=== PATIENT | male | born 1985 | race Caucasian/White ===

== ENCOUNTER 2017-07-24 09:06 | Day surgery (SDC) | payer OTHER ==
--- NOTE | 2017-07-24 09:43 | PDOC ---
History of Present Illness - History of Present Illness Initial Comments: 07/24/17 09:53 The patient is a 32 year old male, with a significant past medical history of left inguinal hernia, who presents to the emergency department for scheduled left inguinal hernia repair with Dr. Issac Shelton with increasing pain to his left lower abdomen x 1 month. He reports being NPO since midnight. He reports his LBM was normal yesterday. He denies chest pain, shortness of breath, headache and dizziness. He denies fever, chills, nausea, vomit, diarrhea and constipation. He denies dysuria, frequency, urgency and hematuria. Allergies: NKDA Past surgical history: none reported Social history: nonsmoker, no EtOH use <Mini Lewis - Last Filed: 07/24/17 09:53> <Akash Alexander - Last Filed: 07/24/17 15:01> - General Chief Complaint: Pain, Acute Stated Complaint: PAIN (PCP SENT) Time Seen by Provider: 07/24/17 09:30 Past History <Mini Lewis - Last Filed: 07/24/17 09:53> - Past Medical History CVA: No COPD: No DVT: No Dementia: No - Immunization History Immunization Up to Date: Yes - Suicide/Smoking/Psychosocial Hx Smoking History: Former smoker Have you smoked in the past 12 months: No If you are a former smoker, when did you quit?: 10yrs Information on smoking cessation initiated: No Hx Alcohol Use: No Drug/Substance Use Hx: No Substance Use Type: None <Akash Alexander - Last Filed: 07/24/17 15:01> - Past Medical History Allergies/Adverse Reactions: Allergies Allergy/AdvReac Type Severity Reaction Status Date / Time No Known Allergies Allergy Verified 07/24/17 09:11 Home Medications: Ambulatory Orders Docusate Sodium [Colace -] 100 mg PO TID #90 capsule 07/24/17 Oxycodone HCl/Acetaminophen [Percocet 5-325 mg Tablet] 1 - 2 tab PO Q6H #28 tab MDD 4 07/24/17 Review of Systems - Review of Systems Constitutional: No: Chills, Fever Respiratory: No: Cough, Shortness of Breath ABD/GI: Yes: See HPI. No: Constipated, Diarrhea, Vomiting : No: Dysuria, Hematuria All Other Systems: Reviewed and Negative <Akash Alexander - Last Filed: 07/24/17 15:01> *Physical Exam - Vital Signs Last Vital Signs Temp Pulse Resp BP Pulse Ox 98.5 F 95 H 15 134/86 100 07/24/17 09:12 07/24/17 09:12 07/24/17 09:12 07/24/17 09:12 07/24/17 09:12 - Physical Exam Comments: 07/24/17 09:54 GENERAL: The patient is awake, alert, and fully oriented, in no acute distress. HEAD: Normal with no signs of trauma. EYES: Pupils equal, round and reactive to light, extraocular movements intact, sclera anicteric, conjunctiva clear with no pallor. ENT: Ears normal, nares patent, oropharynx clear without exudates. Moist mucous membranes. NECK: Normal range of motion, supple without lymphadenopathy, JVD, or masses. LUNGS: Breath sounds equal, clear to auscultation bilaterally. No wheeze/ crackles. HEART: Regular rate and rhythm, normal S1 and S2 without murmur or rub. ABDOMEN: No palpable incarcerated hernia. Soft/nontender/nondistended. BS wnl. No guarding or rebound. No palpable masses or lymphadenopathy. No hepatosplenomegaly. EXTREMITIES: Normal range of motion, no edema. No clubbing or cyanosis. No cords, erythema, or tenderness. NEUROLOGICAL: Cranial nerves II through XII grossly intact. Normal speech, normal gait. PSYCH: Normal mood, normal affect. SKIN: Warm, Dry, normal turgor, no rashes or lesions noted. <Mini Lewis - Last Filed: 07/24/17 09:53> - Vital Signs Last Vital Signs Temp Pulse Resp BP Pulse Ox 98.5 F 95 H 15 134/86 100 07/24/17 09:12 07/24/17 09:12 07/24/17 09:12 07/24/17 09:12 07/24/17 09:12 <Akash Alexander - Last Filed: 07/24/17 15:01> Heart Score/ECG Review #1 ECG reviewed & interpreted by me at: 12:28 General ECG Interpretation: Sinus Rhythm, Normal Rate (78), Normal Intervals ( qtc 426), No acute ischemic changes <Akash Alexander - Last Filed: 07/24/17 15:01> ED Treatment Course - LABORATORY CBC & Chemistry Diagram: 07/24/17 09:40 07/24/17 09:40 <Akash Alexander - Last Filed: 07/24/17 15:01> Medical Decision Making - Medical Decision Making 07/24/17 09:50 A portion of this note was documented by scribe services under my direction. I have reviewed the details of the note, within reason, and agree with the documentation with the following case summary and management plan written by me. 32-year-old male with worsening pain and discomfort from the inguinal hernia, plan for operative repair with Dr. Shelton. No obstructive symptoms of vomiting or constipation, no fevers or chills. abd soft, L inguinal hernia without incarceration. nt/nd, bs nl no LAD 32y/o M with worsening symptoms of L inguinal hernia. labs, iv accepted for OR by Dr. Shelton <Akash Alexander - Last Filed: 07/24/17 15:01> *DC/Admit/Observation/Transfer - Attestations Scribe Attestion: 07/24/17 09:54 Documentation prepared by Mini Lewis, acting as medical delivery technician for Akash Alexander MD, <Mini Lewis - Last Filed: 07/24/17 09:53> - Discharge Dispostion Admit: Yes <Akash Alexander - Last Filed: 07/24/17 15:01> Diagnosis at time of Disposition: Left inguinal hernia
[2017-07-24 10:19] LABS: BASOPHIL 0.7 % (0-2.0); EOSINOPHIL 2.3 % (0-4.5); MCH 24.4 pg (25.7-33.7); MCHC 32.1 g/dl (32.0-35.9); MEAN PLT VOLUME 9.4 fl (7.5-11.1); NEUTROPHILS 51.2 % (42.8-82.8); PLATELET COUNT 189 K/MM3 (134-434); RDW 21.1 % (11.9-15.9); WHITE BLOOD COUNT 7.4 K/mm3 (4.0-10.0)
[2017-07-24 10:27] LABS: INR 1.03 (0.82-1.09); PROTHROMBIN TIME (PATIENT) 11.6 SEC (9.98-11.88)
[2017-07-24 10:30] LABS: ACTIVATED PTT 31.1 SECONDS (26.9-34.4)
[2017-07-24 10:36] LABS: ALBUMIN 4.8 g/dl (3.4-5.0); ANION GAP 9 (8-16); BILIRUBIN,TOTAL 0.6 mg/dL (0.2-1.0); CALCIUM 9.3 mg/dL (8.5-10.1); CO2 25 mmol/L (21-32); CREATININE 1.1 mg/dL (0.7-1.3); GLUCOSE,RANDOM 84 mg/dL (74-106); SGOT/AST 25 U/L (15-37); TOT PROT 8.7 g/dl (6.4-8.2)
[2017-07-24 10:39] LABS: ALK PHOS 73 U/L (45-117); SGPT/ALT 54 U/L (12-78)
--- NOTE | 2017-07-24 11:16 | CONSULT ---
Consult Consult Specialty:: Surgery Reason for Consultation:: Abdominal pain - History of Present Illness History of Present Illness: 32 male presents to the ER for abdominal pain Pain is near previously noted inguinal hernia More tender on the right No fevers - History Source History Provided By: Patient Limitations to Obtaining History: No Limitations - Alcohol/Substance Use Hx Alcohol Use: No - Smoking History Smoking history: Former smoker Have you smoked in the past 12 months: No If you are a former smoker, when did you quit?: 10yrs Home Medications - Allergies Allergies/Adverse Reactions: Allergies Allergy/AdvReac Type Severity Reaction Status Date / Time No Known Allergies Allergy Verified 07/24/17 09:11 - Home Medications Home Medications: Ambulatory Orders Docusate Sodium [Colace -] 100 mg PO TID #90 capsule 07/24/17 Oxycodone HCl/Acetaminophen [Percocet 5-325 mg Tablet] 1 - 2 tab PO Q6H #28 tab MDD 4 07/24/17 Family Disease History - Family Disease History Family History: Unremarkable Review of Systems - Review of Systems Constitutional: denies: Chills, Fever HENT: reports: No Symptoms Neck: reports: No Symptoms Cardiovascular: denies: Chest Pain Respiratory: denies: Cough Gastrointestinal: reports: Abdominal Pain Genitourinary: reports: No Symptoms Neurological: denies: Change in LOC Pain Intensity: 3 Physical Exam Vital Signs: Vital Signs Temperature 98.5 F 07/24/17 09:12 Pulse Rate 95 H 07/24/17 09:12 Respiratory Rate 15 07/24/17 09:12 Blood Pressure 134/86 07/24/17 09:12 O2 Sat by Pulse Oximetry (%) 100 07/24/17 09:56 Constitutional: Yes: Calm HENT: Yes: WNL Neck: Yes: Supple Cardiovascular: Yes: Regular Rate and Rhythm Respiratory: Yes: CTA Bilaterally Gastrointestinal: Yes: Soft, Tenderness (Near right inguinal hernia Some tenderness near a left inguinal hernia as well) Neurological: Yes: Alert, Oriented Labs: CBC, BMP 07/24/17 09:40 Problem List - Problems (1) Inguinal hernia, bilateral Code(s): K40.20 - BI INGUINAL HERNIA, W/O OBST OR GANGRENE, NOT SPCF RECUR Qualifiers: Obstruction and gangrene presence: without obstruction or gangrene Assessment/Plan Bilateral inguinal hernias causing pain Will repair with mesh
--- NOTE | 2017-07-24 13:19 | EKG ---
Test Reason : Blood Pressure : / mmHG Vent. Rate : 078 BPM Atrial Rate : 078 BPM P-R Int : 152 ms QRS Dur : 088 ms QT Int : 374 ms P-R-T Axes : 060 085 071 degrees QTc Int : 426 ms NORMAL SINUS RHYTHM NORMAL ECG NO PREVIOUS ECGS AVAILABLE REPEAT EKG IF CLINICALLY INDICATED Confirmed by STCAY BRITO MD ([id number]) on 07/24/2017 1:18:49 PM Referred By: Confirmed By:STACY BRITO MD
[2017-07-24 15:01] VITALS: BMI 30.1
[2017-07-24] MEDS ORDERED: MIDAZOLAM HCL 2 MG/2 ML SINGLE DOSE VIAL ONE (17:12)
[2017-07-24] MEDS ORDERED: ROCURONIUM BROMIDE 50 MG/5 ML VIAL ONE ×2 (17:16→18:42)
[2017-07-24] MEDS ORDERED: DESFLURANE GAS 240 ML BOTTLE IH ONE (17:26)
[2017-07-24] MEDS ORDERED: PROMETHAZINE HCL 25 MG/1 ML VIAL IVPUSH PRN (17:35)
[2017-07-24] MEDS ORDERED: ONDANSETRON 4 MG/2 ML VIAL IVPUSH PRN ×2 (17:35→21:08)
[2017-07-24] MEDS ORDERED: LACTATED RINGERS SOLUTION 1,000 ML IV SCH (17:45)
[2017-07-24] MEDS ORDERED: DEXAMETHASONE SOD PHOSPHATE 4 MG/1 ML VIAL ONE (18:06)
[2017-07-24] MEDS ORDERED: SODIUM CHLORIDE 0.9% P/F 10 ML VIAL IJ ONE (18:06)
[2017-07-24] MEDS ORDERED: ceFAZolin SODIUM 1 GM VIAL ONE (18:06)
[2017-07-24] MEDS ORDERED: ceFAZolin SODIUM 1 GM VIAL IVPB ONE (18:10)
[2017-07-24] MEDS ORDERED: KETOROLAC TROMETHAMINE 30 MG/1 ML VIAL ONE (19:31)
[2017-07-24] MEDS ORDERED: GLYCOPYRROLATE 0.2 MG/1 ML VIAL ONE (20:28)
[2017-07-24] MEDS ORDERED: NEOSTIGMINE METHYLSULFATE 0.5 MG/ML - 10 ML MDV ONE (20:29)
[2017-07-24] MEDS ORDERED: ACETAMINOPHEN 325 MG TABLET (FP) PO PRN (21:08)
[2017-07-24] MEDS ORDERED: HYDROmorphone HCL CARPU-JECT 1 MG/1 ML DISP.SYRIN IVPB PRN (21:08)
--- NOTE | 2017-07-24 21:11 | OP ---
Operative Note - Note: Operative Date: 07/24/17 Pre-Operative Diagnosis: Bilateral inguinal hernias with pain Operation: Robotic bilateral inguinal hernia repair with mesh. Laparoscopic umbilical hernia repair Findings: Bilateral indirect inguinal hernias Post-Operative Diagnosis: Other (Bilateral indirect inguinal hernias, umbilical hernia) Surgeon: Issac Shelton [employer] Guide: Nunu Randolph Anesthesia: General Specimens Removed: None Estimated Blood Loss (mls): 10 Drains & Tubes with Location: Large 3D max mesh bilaterally Operative Report Dictated: Yes
--- NOTE | 2017-07-24 21:12 | SURG ---
Surgery Animal Behaviourist Note Animal Behaviourist: Nunu Randolph PA-C Date of Service: 07/24/17 Diagnosis: Bilateral inguinal hernias with pain Procedure: Robotic bilateral inguinal hernia repair with mesh. Laparoscopic umbilical hernia repair I was present for the entirety of the operative procedure. For further detail, please refer to operative report. Visit type - Case Type Case Type: ED Admission - Emergency Emergency Visit: Yes Care time: The patient presented to the Emergency Department on the above date and was hospitalized for further evaluation of their emergent condition. - New patient This patient is new to me today: Yes Date on this admission: 07/24/17
[2017-07-24] MEDS: D5-1/2NS+20 MEQ KCL - 20 MEQ/1,000 ML INFUS.BAG IV SCH (23:03)
[2017-07-25] MEDS: oxyCODONE HCL 5 MG TABLET PO PRN ×2 (07:47→12:41)
--- NOTE | 2017-07-25 08:43 | SPEC ---
DATE OF OPERATION: 07/24/2017 SURGEON: Issac Shelton M.D. REAL ESTATE TEACHER: SKY Arvizu PREOPERATIVE DIAGNOSIS: Bilateral inguinal hernias with pain. POSTOPERATIVE DIAGNOSIS: Bilateral indirect inguinal hernias and umbilical hernia. PROCEDURE PERFORMED: Robotic repair of bilateral indirect inguinal hernias with 3DMax mesh, and laparoscopic umbilical hernia repair. ESTIMATED BLOOD LOSS: 10 mL. DRAINS: None. ANESTHESIA: GET. REASON FOR PROCEDURE: This is a 32-year-old gentleman who presented to the ER with pain at his bilateral inguinal regions, right greater than left. He was noted to have bilateral inguinal hernias. Because of this, he was consented for robotic, possible open bilateral inguinal hernia repairs with mesh. RISKS AND BENEFITS: The risks and benefits of a robotic, possible open bilateral inguinal hernia repair with possible mesh were explained. These included bleeding, infection, recurrence of hernia, NC, DVT, PE, new hernia, injury to surrounding structures including the colon, bowel, bladder, spleen, other intra-abdominal organs, vas deferens, testcular vessels with possible atrophy and necrosis, vessel injury, nerve injury, mesh infection and as some of the possible complications. The patient understood and signed informed consent. DESCRIPTION OF PROCEDURE: ROBOTIC RIGHT INGUINAL HERNIA REPAIR WITH MESH: The patient was placed supine on the operating room table. Patient underwent general endotracheal intubation. A Mcknight catheter was inserted by the nursing staff. The arms were tucked at the side, and he was placed on a beanbag device. The abdomen was prepped and draped in the usual sterile fashion. A time-out was performed. A periumbilical incision was made , and an umbilical hernia was noted. Entrance into the abdominal cavity was obtained using a 12-mm robotic trocar under direct visualization with a laparoscope. Pneumoperitoneum was established. Subsequently, two additional 8-mm trocars were placed, one approximately 6-7 cm to the left of the umbilicus and one 6-7 cm to the right of the umbilicus. The patient was placed in steep Trendelenburg. The robot was brought over the field and docked. The right inguinal hernia was first approached. Dissection was performed at the console. The peritoneum was opened using robotic EndoShears. The preperitoneal space over the right inguinal region was dissected. The epigastric vessels were identified. These were dissected towards the anterior abdominal wall. Dissection in the preperitoneal space was continued from the medial umbilical ligament towards the anterior-superior iliac spine. Medially, dissection was performed until Kurtis's ligament and the pubis were identified. Lateral to this, the spermatic cord structures including the vas deferens were identified. The contents of the hernia sac were identified and dissected down to the retroperitoneum. At this point, hemostasis was identified. Again, all of the hernia contents were noted to be completely dissected and noted to have no retraction back to its original position. A mesh was then chosen, irrigated, and inserted into the abdominal cavity to cover the entire myopectineal orifice. This mesh was secured medially at the pubis and superolaterally to the abdominal wall with sutures. The mesh was noted to be in good position. The hernia was again noted to be fully reduced and without any tension. At this point, the peritoneal flap was closed using a 2-0 V-Loc suture. Again, hemostasis was identified. All needles were removed from the field, and the count was confirmed to be correct. The same dissection and mesh placement was performed on the left side. The preperitoneal space over the left inguinal region was dissected. The epigastric vessels were identified and dissected toward the anterior abdominal wall. Dissection in the preperitoneal space was continued from the medial umbilical ligament towards the anterior-superior iliac spine. Medially, dissection was performed until Kurtis's ligament and the pubis were identified. Lateral to this, the spermatic cord structures, including the vas deferens, were identified. The contents of the hernia sac were identified and dissected down to the retroperitoneum. At this point, hemostasis was identified. Again, all of the hernia content was noted to be completely dissected and noted to have no retraction back to its original position. A mesh was then chosen, irrigated and inserted into the abdominal cavity to cover the entire myopectineal orifice. The mesh was secured medially at the pubis and superolaterally to the abdominal wall with sutures. The mesh was noted to be in good position. The hernia was again noted to be fully reduced and without any tension. At this point, the peritoneal flap was closed using a 2-0 V-Loc suture. Again, hemostasis was identified. All needles were removed from the field and the count was confirmed to be correct. The robotic instruments were removed. The robot was undocked and removed from the operative field. The patient was placed supine. UMBILICAL HERNIA REPAIR: At the beginning of the procedure it was also noted that the patient had an umbilical hernia. This was used to place the initial trocar. At the end, after the pneumoperitoneum was desufflated and all trocars were removed , the umbilical hernia was repaired laparoscopically with 0 Vicryl suture with a Darren-Krunal device. Pneumopoeritoneum was then desufflated and all trocars removed. Marcaine was injected in all incisions. All skin incisions were closed using 4- 0 Biosyn. Sterile dressings were applied. The patient tolerated the procedure well and was transferred to the recovery room in stable condition. Jez [id number] MTDD
[2017-07-25] MEDS: D5-1/2NS+20 MEQ KCL - 20 MEQ/1,000 ML INFUS.BAG IV SCH (12:46)
[2017-07-25 18:15] VITALS: BP 108/71; PULSE 80; TEMP 98.9
== END 2017-07-25 18:34 | disposition home or self-care (01) ==
LOC: JER 09:06 → JASUSAT 09:52 → J6S 22:45 → JASUSAT 07-25 18:34
PROVIDERS: ATTEND Surgery
PROC: 8E0W4CZ Robotic Assisted Procedure of Trunk Region, Percutaneous Endoscopic Approach (ICD-10-PCS; 2017-07-24)
PROC: 0WQF4ZZ Repair Abdominal Wall, Percutaneous Endoscopic Approach (ICD-10-PCS; 2017-07-24)
PROC: 8E0W4CZ Robotic Assisted Procedure of Trunk Region, Percutaneous Endoscopic Approach (ICD-10-PCS; 2017-07-24)
PROC: 0YUA4JZ Supplement Bilateral Inguinal Region with Synthetic Substitute, Percutaneous Endoscopic Approach (ICD-10-PCS; principal; 2017-07-24 15:00)
DX: K40.20 Bilateral inguinal hernia, without obstruction or gangrene, not specified as recurrent (principal); K42.9 Umbilical hernia without obstruction or gangrene
CPT/HCPCS: 49650; 49652; S2900; 36415; 80053; 85025; 85610; 85730; 86850; 86900; 86901; 93005; 93010; 94760; 99285-25